=== PATIENT | male | born 1995 | race African-American/Black ===

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

== ENCOUNTER 2017-09-29 02:48 | Emergency (ER) | payer SELFPAY, OTHER ==
[2017-09-29 03:57] LABS: BILIRUBIN,URINE NEGATIVE (NEG); CLARITY,URINE CLOUDY; COLOR,URINE YELLOW; GLUCOSE,URINE NEGATIVE (NEG); NITRITE,URINE NEGATIVE (NEG); PH,URINE 6.5; PROTEIN,URINE NEGATIVE (NEG-TRACE)
[2017-09-29 04:05] LABS: BACTERIA,URINE FEW /HPF (0-FEW); RBC,URINE TNTC /HPF (0-2); SQUAMOUS EPITHELIAL CELL,UR FEW /LPF
[2017-09-29] MEDS ORDERED: LIDOCAINE 1% PF 2 ML VIAL. (05:14)
[2017-09-29] MEDS: AZITHROMYCIN 250 MG TABLET. PO (05:19)
[2017-09-29] MEDS: cefTRIAXone IM 250 MG VIAL IM (05:19)
== END 2017-09-29 05:40 | disposition home or self-care (01) ==
LOC: ER 02:48
DX: N34.2 Other urethritis (principal); F12.10 Cannabis abuse, uncomplicated
CPT/HCPCS: 81001; 87491; 87591; 96372; 99284-25; J0696; Q0144